=== PATIENT | female | born 1995 | race Caucasian/White ===

== ENCOUNTER → 2017-07-28 | Day surgery (SDC) | payer OTHER ==
[2017-06-28 13:03] VITALS: Ht 170.2 cm; Wt 86.4 kg
[~2017-07-28] VITALS: Ht 170.2 cm; Wt 86.4 kg
[~2017-07-28] MED LIST: ASPI81TA28 PO; ATROPINE SULFATE 0.1 MG/ML 5ML SYR IV PRN; CEFAZOLIN 1000MG IV PUSH 7.5 ML IV STA; CEFAZOLIN 2000MG IV PUSH 15 ML IV SCH; CEFAZOLIN SOD 1 GM VIAL ONE; CEFAZOLIN SOD 1000MG/7.5 ML IV PUSH IV ONE; DEXAMETHASONE SOD INJ 4 MG/ML VIAL ONE; EpINEphrine INJ 1MG/ML AMP 1 MG/ML AMP ONE; FENTANYL CITRATE INJ 50 MCG/1 ML 2 ML VIAL ONE; IBUP-1050 PO; KETO10TA PO; KETOROLAC TROMETHAMINE 30 MG/ML VIAL IV. PRN; KETOROLAC TROMETHAMINE 30 MG/ML VIAL ONE; LACTATED RINGER'S 1000ML 1,000 ML IV SCH; LIDOCAINE HCL 2% 2 ML VIAL (20MG/ML) ONE; MIDAZOLAM HCL 1 MG/ML 2ML VIAL ONE; NUVVR VAGRING; ONDANSETRON INJ 2 MG/ML 2 ML VIAL IV PRN; ONDANSETRON INJ 2 MG/ML 2 ML VIAL ONE; OXYC-57 PO; OXYCODONE/ACETAMINOPHEN 5-325 TAB PO PRN; PROPOFOL IV EMULSION 10 MG/ML 20 ML VIAL IV ONE; ROPIVACAINE 0.5% 5 MG/ML 30 ML VIAL ONE; SCOPOLAMINE 1.5 MG TDSY TD ONE; SODIUM CHLORIDE 0.9% 1000ML 1,000 ML IV SCH; VNTHFA/IN INH
--- NOTE | 2017-07-28 10:06 | History & Physical Bridge - [place] ---
H&P Re-Evaluation Bridge Note: I have examined the patient, reviewed the History & Physical and in the interval since the performance of the History & Physical I have noted the following changes of clinical significance: No changes noted
--- NOTE | 2017-07-28 13:26 | [facility] Post Operative Brief Note ---
Immediate Operative Summary Operative Date Jul 28, 2017. Pre-Operative Diagnosis Rupture of right ACL Post-Operative Diagnosis same Procedure(s) Performed Right Knee Arthroscopy Anterior Cruciate Ligament Reconstruction, Hamstring Autograft Surgeon Dr. Brunson Bindery Leadperson Surgeon(s) Scooter Rodriguez PA-C Estimated Blood Loss 0ML Findings Consistent with Post-Op Diagnosis Specimens none Drains None Anesthesia Type General Regional Complication(s) none Disposition Accompanied Pt To Recovery: no Disposition: Recovery Room / PACU
--- NOTE | 2017-07-28 13:26 | Discharge Instructions-SurgCtr ---
Discharge Instructions Date of Service Jul 28, 2017. Visit Reason for Visit: Rupture Of Anterior Cruciate Ligament Discharge Discharge Diagnosis / Problem: right ACL tear Discharge Goals Goal(s): Decrease discomfort, Improve function, Therapeutic intervention Activity Recommendations Activity Limitations: per Instructions/Follow-up section Weightbearing Status: Right weightbearing (as tolerated with brace ) Anesthesia . Post Anesthesia Instructions: If you have had General Anesthesia or IV Sedation: * Do not drive today. * Resume driving when surgeon permits. * Do not make important decisions or sign legal documents today. * Call surgeon for: 1. Temperature elevations greater than 101 degrees F. 2. Uncontrollable pain. 3. Excessive bleeding. 4. Persistent nausea and vomiting. 5. Medication intolerance (nausea, vomiting or rash). * For nausea and vomiting use only clear liquids such as: tea, soda, bouillon until nausea subsides, then gradually increase diet as tolerated. * If you have any concerns or questions, call your surgeon's office. If physician is unavailable and it is an emergency, call 911 or go to the nearest emergency room. . Instructions / Follow-Up Instructions / Follow-Up MEDICATIONS: * Resume previous medications unless instructed otherwise by your surgeon. * Always take pain medication on a full stomach or with food to avoid upset stomach. * Do not drink alcohol or drive while taking narcotics. * Ibuprofen or Tylenol may be taken if narcotic not needed. no ibuprofen while taking toradol SPECIAL CARE INSTRUCTIONS: __ None _x_ Keep extremity elevated and iced x 48 hours; apply ice 20-30 minutes 8-10 times/day. May remove at night. _x_ Crutches __ May discard when able _x_ Brace/Post-op shoe __ 24 hrs/day __ Remove at night _x_ Dressing __ Maintain until seen in office, may shower with plastic over site _x_ Remove dressings in 24-48 hours and then may shower _x_ Cover incisions with band-aids after showering _x_ Do not remove steri-strips Call physician if chills or temperature rises above 102 degrees or pain unrelieved by prescribed pain medications. Office [phone] follow up in 2 weeks Diet Recommendations Home Diet: resume previous diet Procedures Procedures Performed: Right Knee Arthroscopy Anterior Cruciate Ligament Reconstruction, Hamstring Autograft Pending Studies Studies pending at discharge: no Medical Emergencies . Who to Call and When: Medical Emergencies: If at any time you feel your situation is an emergency, please call 911 immediately. . Non-Emergent Contact Non-Emergency issues call your: Surgeon . . "Provider Documentation" section prepared by Mohinder Rodriguez. .
[2017-07-28] MEDS: FENTANYL CITRATE INJ 50 MCG/1 ML 2 ML VIAL IV PRN ×4 (13:42→14:01)
[2017-07-28 14:25] VITALS: TEMP 37.2
--- NOTE | 2017-07-28 14:43 | OPERATIVE REPORT ---
DATE OF OPERATION: 07/28/2017 SURGEON: Toribio Brunson MD [employer]ER: ALFREDO Rivera PREOPERATIVE DIAGNOSIS: Right knee anterior cruciate ligament tear. POSTOPERATIVE DIAGNOSIS: Same. PROCEDURE PERFORMED: 1. Right knee exam under anesthesia. 2. Right knee diagnostic arthroscopy. 3. Right knee arthroscopic ACL reconstruction with 8.5 mm/8.5 mm semitendinosis/gracilis autograft. COMPLICATIONS: None. ESTIMATED BLOOD LOSS: Minimal. TOURNIQUET TIME: 62 minutes at 300 mmHg. ANESTHESIA: General with adductor canal block. DRAINS: None. SPECIMENS: None. 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 She was seen locally and diagnosed with an ACL tear which was confirmed by MRI. She had restored her range of motion and elected to proceed with ACL reconstruction. OPERATIVE FINDINGS: Examination under anesthesia of the right knee revealed just a trace knee effusion. Her range of motion was 0-135 plus. She had a positive Sukh, grade 2 pivot, negative anterior drawer, negative posterior drawer. No varus or valgus instability. Ayanna's is negative for mechanical symptoms. There was no posterolateral rotatory instability. ARTHROSCOPIC FINDINGS: Arthroscopic findings revealed a small knee effusion. The undersurface of patella and trochlea were normal. In the intercondylar notch, the ACL was torn. The ACL was pretty much a midsubstance tear. The PCL was intact. In the medial compartment, the articular surface and meniscus was normal. In the lateral compartment, the articular surface and meniscus was normal. OPERATIVE PROCEDURE: The patient taken to the operating room, identified and placed on the operating table in supine position. All contact areas were appropriately padded. IV antibiotics were provided by anesthesia team. An adductor canal block provided in the holding area. A right thigh tourniquet was then placed. A general anesthetic was implemented. IV antibiotics were provided. A Right knee exam under anesthesia was then performed with the findings as described above. The right leg was then prepped and draped in the usual sterile fashion. The right leg was elevated and Esmarch tourniquet placed at 300 mmHg. Attention was first drawn toward harvesting the graft. A 4-5 cm incision made directly over the pes tendons. Sharp dissection was got through the subcutaneous tissues down to the level of the sartorius fascia. The subcutaneous tissue mobilized circumferentially. An oblique incision was made in the sartorius fascia above the hamstring tendons. The hamstring tendons were then taken sharply off the anterior face of the tibia. Each tendon was isolated and a #2 Ticron whipstitch was placed in the end of each tendon. Each tendon was then harvested with a closed ended tendon stripper. They were then taken to the back table and cut to 21 cm in length. The muscle was stripped off the opposite end of the tendon and a #2 Tycron whipstitch was placed in the opposite end. The tendons were then folded over. They were sized and sized for an 8-1/2 graft in the femur and an 8-1/2 in the tibial tunnel. The graft was then placed on a graft board and 10 pounds of tension were applied until ready for implantation. During graft preparation, routine right knee arthroscopy was then performed through typical anteromedial and anterolateral portals. Supralateral outflow portal were stopped for outflow. The remnant of the ACL was excised. A small notchplasty was performed. I then examined the knee and there was no meniscal or chondral work needed. Attention was then drawn to doing the ACL reconstruction. With the use of the tibial guide set at 50 degrees, a guidewire was placed in the area of the proposed tibial tunnel. It was overdrilled with an 8.5 mm solid reamer. Tunnel was cleaned of all debris. A 7 mm over the top guide was then placed through the anterior medial portal and the knee was maximally flexed. A guidewire was placed in the area of proposed femoral tunnel bit. This was then overdrilled with the Endobutton drill bit. The total tunnel length measured 32 mm. A 10 mm closed loop Endobutton was selected. The guidewire was then over reamed with an 8.5 mm acorn drill bit for a distance of 28 mm. The tunnel was cleaned of all debris. The graft was then looped over a 10 mm closed loop Endobutton. A Beath pin was then used to pass the graft through the tibial tunnel up into the femoral tunnel and the Endobutton was flipped. The knee was cycled several times and there was no impingement. The knee was brought out into full extension. The graft was then tensioned with the knee in full extension by using the Intrafix tensioner. The tunnel was then dilated and a small Biocryl Intrafix sheath was placed followed by a 6/8 Biocryl Intrafix screw. The knee was examined. There was no pivot and no Sukh test at all. The scope was placed back in the knee and the graft was appropriately tensioned in both flexion and extension. There was no impingement. The shaver was then used to debride the knee of all extraneous debris. Arthroscopic instruments were removed from the joint. The portals were closed with 3-0 Prolene suture in a simple fashion. The sartorius fascia was then closed with 0 Vicryl suture in a ocnnzy-yi-soqjc fashion. The knee was then injected with 30 mL of 0.5% ropivacaine with epinephrine and 30 mg of Toradol. The tourniquet was then let down for a tourniquet time of 62 minutes. The wound was then irrigated again. Hemostasis was assured using electrocautery. The subcutaneous tissues were then closed with 2-0 Dexon suture in buried interrupted fashion. Skin was closed with 3-0 Prolene suture in a subcuticular fashion. Leg was then cleaned, dried and a sterile dressing of Steri-Strips, Xeroform, 4 x 4s, ABD pad, sterile cast padding, Tarik bandage, cold pack and knee immobilizer applied. The patient then brought out of general anesthesia and transferred to the recovery room in stable condition. The patient tolerated with no complication. All needle and sponge counts were correct at the end of the operation. I attest to the content of the Intraoperative Record and any orders documented therein. Any exceptions are noted below. CHANTEL
[2017-07-28 14:55] VITALS: BP 132/84; PULSE 72; O2SAT 100
--- NOTE | 2017-07-28 14:59 | Anesthesia Progress Nt - [facility] ---
Anesthesia Post Op Note Date & Time Jul 28, 2017 at 14:59 Vital Signs Vital Signs Past 12 Hours Date Time Temp Pulse Resp B/P (MAP) Pulse Ox O2 Delivery O2 Flow Rate FiO2 07/28/17 14:55 72 16 132/84 (100) 100 Room Air 07/28/17 14:25 37.2 72 18 142/87 (105) 98 Room Air 07/28/17 14:18 37.2 07/28/17 14:16 87 15 135/87 (112) 97 07/28/17 14:16 90 15 07/28/17 14:11 82 21 07/28/17 14:11 85 21 139/108 (112) 97 07/28/17 14:07 Room Air 07/28/17 14:06 75 17 136/89 (94) 97 07/28/17 14:06 75 17 07/28/17 14:01 69 16 137/90 (96) 100 07/28/17 14:01 69 16 07/28/17 13:56 67 11 07/28/17 13:56 66 11 139/95 (100) 100 07/28/17 13:51 71 10 07/28/17 13:51 71 10 129/93 (106) 100 07/28/17 13:46 93 15 139/87 (111) 100 07/28/17 13:46 95 15 07/28/17 13:42 139/105 (115) 07/28/17 13:41 100 25 07/28/17 13:41 100 25 100 07/28/17 13:38 132/95 (108) 07/28/17 13:36 104 17 07/28/17 13:36 105 17 100 07/28/17 13:33 146/74 (107) 07/28/17 13:31 108 100 07/28/17 13:31 108 07/28/17 13:30 125/103 (109) 07/28/17 13:26 36.8 117 16 125/103 100 Diffusion Mask 5 07/28/17 11:37 85 07/28/17 11:37 83 100 07/28/17 11:36 101 22 145/94 100 07/28/17 11:36 100 07/28/17 11:31 118 07/28/17 11:31 117 156/94 100 07/28/17 11:28 128/89 07/28/17 11:26 88 07/28/17 11:26 84 99 07/28/17 11:21 83 07/28/17 11:21 75 0 96 07/28/17 11:16 80 07/28/17 11:16 79 99 07/28/17 11:11 83 07/28/17 11:11 90 98 07/28/17 11:06 88 07/28/17 11:06 85 98 07/28/17 11:01 78 97 07/28/17 11:01 84 07/28/17 10:56 80 07/28/17 10:56 76 97 07/28/17 10:51 81 97 07/28/17 10:51 84 07/28/17 10:46 89 07/28/17 10:46 92 99 07/28/17 10:41 79 07/28/17 10:41 78 98 07/28/17 10:36 85 94 07/28/17 10:36 84 07/28/17 10:31 94 07/28/17 10:31 93 99 07/28/17 10:26 83 98 07/28/17 10:26 81 07/28/17 09:43 36.7 109 20 147/92 (110) 94 Room Air Notes Mental Status: alert / awake / arousable, participated in evaluation Pt Amnestic to Procedure: Yes Nausea / Vomiting: adequately controlled Pain: adequately controlled Airway Patency, RR, SpO2: stable & adequate BP & HR: stable & adequate Hydration State: stable & adequate Anesthetic Complications: no major complications apparent
== END | disposition home or self-care (01) ==
LOC: X.SURG 08:57
PROVIDERS: ATTEND Orthopaedic Surgery Sports Medicine
DX: S83.511A Sprain of anterior cruciate ligament of right knee, initial encounter (principal); X58.XXXA Exposure to other specified factors, initial encounter; Y93.23 Activity, snow (alpine) (downhill) skiing, snowboarding, sledding, tobogganing and snow tubing